=== PATIENT | female | born 1980 ===

== ENCOUNTER 2017-03-10 14:48 | Emergency (ER) | payer SELFPAY ==
[2017-03-10 15:28] LABS: Basophils % (Auto) 0.5 % (0.0-1.8); Eosinophils % (Auto) 3.2 % (0.0-4.3); Hematocrit 37.6 % (30.3-42.9); Hemoglobin 12.3 gm/dl (10.1-14.3); Mean Corpuscular HGB Conc 33 % (30-34); Mean Corpuscular Volume 78 fl (79-97); Platelet Count 326 K/mm3 (140-440); Red Cell Distribution Width 15.5 % (13.2-15.2); White Blood Count 9.5 K/mm3 (4.5-11.0)
[2017-03-10 15:29] LABS: Bilirubin,Urine NEG (Negative); Blood,Urine NEG (Negative); Ketones,Urine NEG (Negative); Leukocyte Esterase,Urine NEG (Negative); Mucus,Urine FEW /HPF; Nitrite,Urine NEG (Negative); Protein,Urine <15 mg/dL mg/dL (Negative); Urobilinogen,Urine < 2.0 mg/dL (<2.0)
[2017-03-10 15:36] LABS: Mean Corpuscular Hemoglobin 26 pg (28-32)
[2017-03-10 15:45] LABS: Alanine Aminotransferase 31 units/L (7-56); Albumin 4.1 g/dL (3.9-5); Albumin/Globulin Ratio 1.1 %; Alkaline Phosphatase 88 units/L (35-129); Bilirubin,Total 0.3 mg/dL (0.1-1.2); Blood Urea Nitrogen 18 mg/dL (7-17); Calcium 8.7 mg/dL (8.4-10.2); Carbon Dioxide 25 mmol/L (22-30); Glucose 97 mg/dL (65-100); Lipase 20 units/L (13-60); Total Protein 7.8 g/dL (6.3-8.2)
[2017-03-10 15:46] LABS: Anion Gap 17 mmol/L; Chloride 102.6 mmol/L (98-107); Potassium 4.1 mmol/L (3.6-5.0); Sodium 140 mmol/L (137-145)
[2017-03-10] MEDS ORDERED: ZOFRAN ODT PO ONE (16:40)
[2017-03-10] MEDS ORDERED: BENTYL PO ONE (16:40)
[2017-03-10] MEDS ORDERED: BENTYL ONE (16:48)
--- NOTE | 2017-03-10 17:29 | Emergency Department Report ---
ED Abdominal Pain HPI - General Chief Complaint: Abdominal Pain Stated Complaint: STOMACH PAIN Time Seen by Provider: 03/10/17 16:31 Source: patient Mode of arrival: Ambulatory Limitations: Language Barrier - History of Present Illness Initial Comments: PT c/o gradual onset of left flank pain x 1 year. PT states the pain started last April and has progressively worsened. PT states that she is now having the pain daily and the pain is associated with n/v and constipation. PT states sometimes she has to strain to have bm and only a little will come out. PT also reports L sided back pain. PT states she has gone to the clinic for this and her last visit was 2 weeks ago. PT states they do labs and always tell her that the labs are "fine" PT states that 2 weeks ago she was told that she had an infection and she took her prescription. PT states she forgot to bring her empty RX bottle. MD Complaint: abdominal pain Onset/Timin -: Gradual, days(s) (this episode of pain started yesterday and has continued into today ), year(s) Location: L flank Radiation: back Severity: mild (now, was worse before coming to ED ) Severity scale (0 -10): 4 Consistency: intermittent, other (waxes and wanes ) Worsens With: bowel movement Associated Symptoms: nausea, vomiting, constipation. denies: diarrhea, fever, dysuria, hematuria - Related Data LMP Date: 02/19/17 Allergies Allergy/AdvReac Type Severity Reaction Status Date / Time No Known Allergies Allergy Verified 03/10/17 15:01 ED Review of Systems ROS: Stated complaint: STOMACH PAIN Other details as noted in HPI Comment: All other systems reviewed and negative Constitutional: denies: chills, fever Gastrointestinal: abdominal pain, nausea, vomiting. denies: constipation Musculoskeletal: back pain ED Past Medical Hx - Past Medical History Previous Medical History?: No - Surgical History Past Surgical History?: No - Social History Smoking Status: Never Smoker Substance Use Type: None ED Physical Exam - General Limitations: No Limitations General appearance: alert, in no apparent distress, obese - Head Head exam: Present: atraumatic, normocephalic - Eye Eye exam: Present: normal appearance. Absent: conjunctival injection - ENT ENT exam: Present: normal exam, normal orophraynx, normal external ear exam - Neck Neck exam: Present: normal inspection. Absent: tenderness, lymphadenopathy - Respiratory Respiratory exam: Present: normal lung sounds bilaterally. Absent: respiratory distress, wheezes - Cardiovascular Cardiovascular Exam: Present: regular rate, normal rhythm - GI/Abdominal GI/Abdominal exam: Present: soft, normal bowel sounds, other (PT c/o LLQ abd pain ). Absent: tenderness, guarding, rebound - Extremities Exam Extremities exam: Present: normal inspection, full ROM - Back Exam Back exam: Present: normal inspection, full ROM. Absent: tenderness, CVA tenderness (R), CVA tenderness (L), muscle spasm, paraspinal tenderness, vertebral tenderness - Neurological Exam Neurological exam: Present: alert, oriented X3, normal gait - Psychiatric Psychiatric exam: Present: normal affect, normal mood - Skin Skin exam: Present: warm, dry, intact, normal color ED Course Vital Signs 03/10/17 03/10/17 14:53 16:07 Temperature 97.6 F Pulse Rate 77 Respiratory 16 20 Rate Blood Pressure 117/71 O2 Sat by Pulse 100 100 Oximetry - Reevaluation(s) Reevaluation #1: 03/10/17 18:00 PT and pt's family aware of CT result. PT aware she will need to follow up with PCP for incidental finding of pulmonary nodule. pt states the medication she received in the ED helped decrease her abd discomfort. - Pulse Oximetry Interpretation Digit-Finger Initial Pulse Oximetry Readin Actions Taken: none ED Medical Decision Making - Lab Data Result diagrams: 03/10/17 15:12 03/10/17 15:12 - Radiology Data Radiology results: report reviewed CT ABD/Pelvis - small umbilical hernia pulmonary nodule - Differential Diagnosis IBS, obstruction, renal colic, uti Critical Care Time: No Critical care attestation.: If time is entered above; I have spent that time in minutes in the direct care of this critically ill patient, excluding procedure time. ED Disposition Clinical Impression: Nausea, Pulmonary nodule Constipation Qualifiers: Constipation type: unspecified constipation type Qualified Code(s): K59.00 - Constipation, unspecified Umbilical hernia Qualifiers: Obstruction and gangrene presence: without obstruction or gangrene Qualified Code(s): K42.9 - Umbilical hernia without obstruction or gangrene Disposition: DISCHARGED TO HOME OR SELFCARE Is pt being admited?: No Does the pt Need Aspirin: No Condition: Stable Instructions: Abdominal Pain (ED), Constipation (ED), Umbilical Hernia (ED), Pulmonary Nodules (ED) Additional Instructions: Follow back up with your clinic, they can monitor your lung nodule and refer you to surgery Referrals: PRIMARY CARE, [Primary Care Provider] - 3-5 Days CASEY VALIENTE MD [Staff Physician] - 3-5 Days АЛЕКСАНДР CRAWFORD MD [Staff Physician] - 3-5 Days Time of Disposition: 18:06
--- NOTE | 2017-03-10 17:38 | Cat Scan Report ---
FINAL REPORT PROCEDURE: CT ABDOMEN PELVIS WO CON TECHNIQUE: Computerized axial tomography of the abdomen and pelvis was performed without intravenous contrast. This study is performed without intravascular contrast material and its sensitivity for abdominal and pelvic pathology, including neoplasms, inflammation, abscess, free fluid, thrombosis, arterial dissection and infarction, is reduced compared with a contrast enhanced study. HISTORY: L flank pain and nausea COMPARISON: No prior studies are available for comparison. FINDINGS: Lower Lung valdovinos: Small peripheral bulla visualized in the left lower lobe posterior medially. Nonspecific 6 millimeter noncalcified pleural-based nodular densities seen posteriorly in the right lower lobe on image 19 series 3 axial image. Upper Abdomen: Gallbladder is partially contracted otherwise is unremarkable. The liver is unremarkable. The spleen is mildly enlarged measuring 14 centimeters. The adrenal glands and the pancreas are unremarkable. Kidneys, Ureters and Urinary bladder: No abnormalities are seen. No masses calculi or hydronephrosis are identified. Ureters are not distended. The urinary bladder is unremarkable. Retroperitoneum: Abdominal aorta appears normal. No aneurysm is seen. Nonspecific subcentimeter lymph nodes are seen in the retroperitoneum. No pathologically enlarged lymph nodes are identified. Bowel: No bowel loop abnormalities are seen. There is no evidence of bowel obstruction ascites or free intraperitoneal gas. Normal-appearing appendix is seen in the right lower quadrant. Small umbilical hernia containing adipose tissue is visualized. No herniated loops of bowel are seen. Reproductive organs: Uterus and adnexa are unremarkable. Other: There is mild lumbar scoliosis convex to the left apex at L3. No acute bony abnormalities are identified. IMPRESSION: There is mild scoliosis. Small umbilical hernia is present as described. Small nonspecific noncalcified pulmonary nodule seen right lower lobe posteriorly. Consider follow-up CT of the chest to evaluate for other pulmonary nodules. Etiology is uncertain.. Kidneys ureters and urinary bladder are unremarkable.
[2017-03-10 18:21] VITALS: BP 119/73
== END 2017-03-10 18:24 | disposition home or self-care (01) ==
LOC: ED 14:48
DX: K42.9 Umbilical hernia without obstruction or gangrene (principal); J98.4 Other disorders of lung; K59.00 Constipation, unspecified
CPT/HCPCS: 36415; 74176; 80053; 81001; 81025; 83690; 85025; 99284; Q0162